=== PATIENT | female | born 2000 | race Caucasian/White ===

== ENCOUNTER 2023-04-19 19:05 | Emergency (ER) | payer MEDICAID ==
[~2023-04-19] VITALS: Ht 149.9 cm; Wt 58.1 kg
[2023-04-19 19:23] VITALS: BP 129/84; PULSE 73; RESP 16; TEMP 97.9; O2SAT 98
[2023-04-19] MEDS ORDERED: LIDO15SO4 PO (20:29)
[2023-04-19] MEDS ORDERED: IBUP-2213 PO (20:35)
[2023-04-19] MEDS: KETOROLAC 30 MG/ML VIAL IM ONE (21:15)
== END 2023-04-19 21:35 | disposition home or self-care (01) ==
LOC: MED 19:05
DX: K12.0 Recurrent oral aphthae (principal); Z79.899 Other long term (current) drug therapy
CPT/HCPCS: 81002; 81025; 96372; 99283; J1885